=== PATIENT | male | born 1960 | race Native Hawaiian/Other Pacific Islander ===

== ENCOUNTER 2017-03-29 13:37 | Outpatient (CLI) | payer OTHER | END 2017-03-29 19:14 | disposition home or self-care (01) | LOC: RAD 13:37 | DX: J02.9 Acute pharyngitis, unspecified (principal); J44.9 Chronic obstructive pulmonary disease, unspecified ==

== ENCOUNTER 2017-08-29 10:10 | Outpatient (CLI) | payer OTHER ==
[2017-08-29 11:08] LABS: PLATELET COUNT 176 K/uL (142-355)
== END 2017-08-29 20:28 | disposition home or self-care (01) ==
LOC: LABW 10:10
PROVIDERS: Nurse Practitioner Family
DX: R10.84 Generalized abdominal pain (principal); M54.89 Other dorsalgia; R50.9 Fever, unspecified; R11.0 Nausea
CPT/HCPCS: 36415; 80053; 82150; 83690; 85027

== ENCOUNTER 2017-09-11 13:54 | Outpatient (CLI) | payer OTHER ==
[2017-09-11 15:03] LABS: PLATELET COUNT 267 K/uL (142-355)
[2017-09-11 15:16] LABS: PARTIAL THROMBOPLASTIN TIME 25.1 SECONDS (24.5-33.6)
[2017-09-11 15:26] LABS: POTASSIUM 4.9 mmol/L (3.6-5.2)
== END 2017-09-11 22:32 | disposition home or self-care (01) ==
LOC: LABW 13:54
PROVIDERS: Internal Medicine
DX: N18.4 Chronic kidney disease, stage 4 (severe) (principal)
CPT/HCPCS: 36415; 80053; 81000; 82043; 82570; 83735; 84100; 84155; 85027; 85610; 85651; 85730

== ENCOUNTER 2021-03-01 11:31 | Outpatient (CLI) | payer OTHER | END 2021-03-01 19:37 | disposition home or self-care (01) | LOC: US 11:31 | PROVIDERS: ATTEND Nurse Practitioner | DX: R60.0 Localized edema (principal); Z86.718 Personal history of other venous thrombosis and embolism; I10 Essential (primary) hypertension; Z09 Encounter for follow-up examination after completed treatment for conditions other than malignant neoplasm ==

== ENCOUNTER 2021-07-12 16:54 | Outpatient (CLI) | payer OTHER | END 2021-07-12 18:59 | disposition home or self-care (01) | LOC: RAD 16:54 | PROVIDERS: ATTEND Nurse Practitioner Family | DX: R10.9 Unspecified abdominal pain (principal) ==

== ENCOUNTER 2021-08-09 10:31 | Outpatient (CLI) | payer OTHER | END 2021-08-09 19:11 | disposition home or self-care (01) | LOC: RAD 10:31 | PROVIDERS: ATTEND Nurse Practitioner Family | DX: M25.552 Pain in left hip (principal); M25.562 Pain in left knee ==

== ENCOUNTER 2022-08-03 09:14 | Outpatient (CLI) | payer OTHER | END 2022-08-03 19:33 | disposition home or self-care (01) | LOC: RAD 09:14 | PROVIDERS: ATTEND Physician Assistant | DX: M25.552 Pain in left hip (principal) ==

== ENCOUNTER 2022-10-06 11:07 | Outpatient (CLI) | payer OTHER | END 2022-10-06 19:22 | disposition home or self-care (01) | LOC: RAD 11:07 | PROVIDERS: ATTEND Physician Assistant | DX: Z96.642 Presence of left artificial hip joint (principal) ==

== ENCOUNTER 2022-10-24 15:40 | Outpatient (CLI) | payer OTHER ==
[2022-10-24 15:53] LABS: PLATELET COUNT 152 K/uL (142-355)
== END 2022-10-24 19:00 | disposition home or self-care (01) ==
LOC: LABW 15:40
PROVIDERS: ATTEND Orthopaedic Surgery
DX: Z96.642 Presence of left artificial hip joint (principal)
CPT/HCPCS: 36415; 85027; 85652; 86140